=== PATIENT | female | born 2000 | race African-American/Black ===

== ENCOUNTER 2023-10-05 13:38 | Emergency (ER) | payer OTHER, SELFPAY ==
--- NOTE | ~2023-10-05 | CT_ITS ---
CT scan of the Neck Technique: 2.5 mm axial scans were obtained through the neck after intravenous administration of 75 c c Omnipaque 350. Coronal and sagittal reconstructions of the neck were obtained. Dose reduction techn ique was used on this scan by utilizing automated exposure control and iterative reconstruction techn ique. The dose-length product (DLP) was 457.47 mGy-cm. Clinical History: Right neck swelling Findings: There is prominence of the bilateral palatine tonsils, suggestive of tonsillitis. No mature, definabl e abscess identified. Probable minimal infiltration of bilateral parapharyngeal fat. No gross lymphad enopathy evident. The parotid and submandibular glands appear normal. The pharyngeal mucosal spaces appear normal. No soft tissue masses are seen in the neck. The thyroid gland appears normal. Images of the lung apices reveal no abnormalities. Impression: Findings compatible with tonsillitis bilaterally. No peritonsillar abscess evident. Reviewed, dictated and finalized at [facility]. Impression: Findings compatible with tonsillitis bilaterally. No peritonsillar abscess evid ent.
[2023-10-05 13:44] VITALS: BP 113/64; PULSE 87; RESP 20; TEMP 36.4; O2SAT 100
[2023-10-05 15:14] LABS: Strep Group A RT-PCR NOT DETECTED (Negative)
--- NOTE | 2023-10-05 15:46 | ED.GENADULT ---
HPI - General Adult General Chief complaint: Upper Respiratory Infection Stated complaint: swollen tonsils Time Seen by Provider: 10/05/23 15:35 History of Present Illness HPI narrative: Patient is a 23-year-old female with history of lupus, not currently on any medications here with swollen tonsils. patient notes that her symptoms began about 3 days ago. She states that the right side seems to be more swollen than the left side. She notes that she has significant pain with attempting to swallow and has had occasional issues with coughing up mucus but she is able to swallow her saliva. She notes that she additionally has some right-sided neck pain. She has had a subjective fever, she last took ibuprofen approximately 2 hours ago with mild help with symptoms. She denies associated cough, congestion. No known sick contacts. Related Data Allergies Allergy/AdvReac Type Severity Reaction Status Date / Time No Known Allergies Allergy Mild Verified 05/20/09 13:11 Review of Systems Review of Systems: All systems reviewed & are unremarkable except as noted in HPI and below Exam Narrative: GENERAL: Well-appearing, well-nourished, and in no acute distress. HEAD: Normocephalic, atraumatic. EYES: PERRLA and EOMI. ENT: Nares clear. Mucous membranes moist. bilateral tonsillar swelling, worse on the right than the left with mild deviation of the uvula to the left side. She has tender anterior cervical lymphadenopathy worse on the right than the left. No stridor appreciated. No tonsillar exudates appreciated. NECK: Supple. CHEST: Clear to auscultation. No respiratory distress. HEART: Regular rate and rhythm. Normal peripheral pulses. ABDOMEN: Soft, nontender, nondistended. EXTREMITIES: Normal range of motion. No edema. SKIN: Warm, dry, no rash. NEURO: No focal deficits. Alert and oriented x3. PSYCH: Normal mood and affect. Course Course Emergency Course: Chart review performed. Patient here with swollen tonsils and right ear pain. Triage vitals normal. Strep negative. Patient seen evaluated, nontoxic appearing, she does appear to be managing her airway as well as her secretions. She does have some uvular deviation on exam, will do basic labs, mono spot, COVID, influenza, RSV. Will additionally do CT soft tissue neck to evaluate for possible peritonsillar abscess versus deep space infection. Will give decadron, unasyn. Patient agreeable to workup and plan. Lab work and imaging reviewed, CBC unremarkable, electrolytes within normal limits, CRP mildly elevated at 4.2. COVID, influenza, RSV, Monospot negative. CT shows tonsillitis with no peritonsillar abscess. Will discharge on antibiotics. Advised close follow-up with her primary care doctor. The results of pertinent diagnostic studies and exam findings were discussed. The patient?s provisional diagnosis and plan of care were discussed with the patient and present family. The patient and/or present family expressed understanding of the diagnosis and plan. The nurse was instructed to provide written instructions and appropriate follow-up information. The patient understands their need and responsibility to obtain additional follow-up as instructed. The risks of medications administered and prescribed were discussed with the patient and family present. Vital Signs Vital signs: Vital Signs Temperature 97.6 F 10/05/23 13:44 Pulse Rate 87 10/05/23 13:44 Respiratory Rate 20 10/05/23 13:44 Blood Pressure 113/64 10/05/23 13:44 Pulse Oximetry 100 10/05/23 13:44 Temperature 97.8 F 10/05/23 18:21 Pulse Rate 70 10/05/23 18:21 Respiratory Rate 16 10/05/23 18:21 Blood Pressure 116/70 10/05/23 18:21 Pulse Oximetry 100 10/05/23 18:21 Medical Decision Making Vital Signs Vital Signs: Vital Signs Temperature 97.6 F 10/05/23 13:44 Pulse Rate 87 10/05/23 13:44 Respiratory Rate 20 10/05/23 13:44 Blood Pressure 113/64 10/05/23 13:
[2023-10-05] MEDS: AMPICILLIN SULB 3 GM/NS 100 ML 3 GM/100 ML VIAL IVPB (16:56)
[2023-10-05] MEDS: dexAMETHasone SOD PHOS INJ 10 MG/ML 1 ML VIAL IV PUSH (16:56)
[2023-10-05 17:02] LABS: Basophils Percent Auto 0.4 % (0.2-1.2); Eosinophils Absolute Auto 0.1 K/mm3 (0-0.3); Eosinophils Percent Auto 0.9 % (0-4.4); Hematocrit 40.8 % (37.0-47.0); Hemoglobin 13.8 g/dL (12.0-15.0); Immature Granulocyte Absolute 0.02 K/mm3 (0.00-0.031); Immature Granulocyte Percent A 0.3 % (0-0.5); Lymphocytes Absolute Auto 1.56 K/mm3 (0.9-3.2); Mean Corpuscular HGB Conc 33.8 g/dl (32-36); Mean Corpuscular Hemoglobin 31.2 pg (26-34); Mean Corpuscular Volume 92.1 fl (80-100); Mean Platelet Volume 10.5 fl (7.4-10.4); Monocytes Absolute Auto 0.6 K/mm3 (0.1-0.6); Monocytes Percent Auto 7.2 % (2.6-8.5); Neutrophils Absolute Auto 5.6 K/mm3 (1.3-6.7); Neutrophils Percent Auto 71.2 % (45.5-73.1); Platelet Count Result 251 k/mm3 (150-375); Red Blood Count 4.43 M/mm3 (4.2-5.4); Red Cell Distribution Width 12.3 % (11.5-14.5); White Blood Count 7.8 K/mm3 (4.5-10.0)
[2023-10-05 17:15] LABS: Estimated CRCL calculation 99 ml/min; Estimated Glomerular Filt Rate > 60
[2023-10-05 17:16] LABS: Monoscreen Negative (Negative); Negative Monotest Control Negative (Negative); Positive Monotest Control Positive (Positive)
[2023-10-05 17:20] LABS: Alanine Aminotransferase 13 U/L (6-35); Albumin Level 4.5 g/dL (3.5-5.1); Alkaline Phosphatase 50 U/L (38-126); Anion Gap 11 mmol/L (4-12); Aspartate Amino Transferase 28 U/L (14-36); Blood Urea Nitrogen 7 mg/dL (7-17); Calcium 8.9 mg/dL (8.4-10.2); Carbon Dioxide 23 mmol/L (22-30); Chloride 104 mmol/L (98-107); Estimated CRCL calculation 114 ml/min; Estimated Glomerular Filt Rate > 60; Glucose 89 mg/dL (65-110); Potassium 4.3 mmol/L (3.4-5.0); Sodium 138 mmol/L (137-145)
[2023-10-05 17:26] LABS: CRP 4.2 mg/dL (<1.0)
[2023-10-05 17:39] LABS: Influenza A QL RT-PCR Negative (Negative); Influenza B QL RT-PCR Negative (Negative); RSV RNA, RT-PCR Negative (Negative); SARS-CoV-2 RNA PCR Negative (Negative)
[2023-10-05 18:21] VITALS: BP 116/70; PULSE 70; RESP 16; TEMP 36.6; O2SAT 100
== END 2023-10-05 18:23 | disposition home or self-care (01) ==
PROVIDERS: Physician Assistant; Emergency Provider Student in an Organized Health Care Education/Training Program; PCP Nurse Practitioner Family
DX: J03.80 Acute tonsillitis due to other specified organisms (principal); B96.89 Other specified bacterial agents as the cause of diseases classified elsewhere; Z20.822 Contact with and (suspected) exposure to COVID-19
CPT/HCPCS: 36415; 70491; 80053; 85025; 86140; 86308; 87637; 87651; 96365; 96375; 99284; J0295; J1100; Q9967